=== PATIENT | male | born 1990 | race Two or more races ===

== ENCOUNTER 2020-08-19 11:11 | Outpatient (REF) | payer MEDICAID, SELFPAY ==
[2020-08-19 11:30] LABS: COVID-19 Test Negative (Negative)
== END 2020-08-19 11:12 | disposition home or self-care (01) ==
LOC: HO.LAB 11:11
PROVIDERS: Visit Provider Internal Medicine
DX: Z20.822 Contact with and (suspected) exposure to COVID-19 (principal)
CPT/HCPCS: 36415; 87635; C9803

== ENCOUNTER 2020-12-11 09:46 | Outpatient (REF) | payer MEDICAID, SELFPAY | END 2020-12-11 09:47 | disposition home or self-care (01) | LOC: HO.LAB 09:46 | PROVIDERS: Visit Provider Internal Medicine | DX: Z20.822 Contact with and (suspected) exposure to COVID-19 (principal) | CPT/HCPCS: C9803; U0003; U0005 ==

== ENCOUNTER → 2022-09-22 15:06 | Outpatient (BNVA) | payer MEDICAID, SELFPAY | PROVIDERS: PCP Family Medicine; Visit Provider Urology | DX: N47.1 Phimosis (principal); N48.1 Balanitis; E10.9 Type 1 diabetes mellitus without complications; Z83.3 Family history of diabetes mellitus; Z79.4 Long term (current) use of insulin | CPT/HCPCS: 99202 ==

== ENCOUNTER 2022-10-07 15:44 | Outpatient (REF) | payer MEDICAID, SELFPAY | END 2022-10-07 15:45 | disposition home or self-care (01) | LOC: HO.LAB 15:44 | PROVIDERS: PCP Family Medicine; Visit Provider Urology | DX: N48.1 Balanitis (principal); N47.1 Phimosis; E11.9 Type 2 diabetes mellitus without complications | CPT/HCPCS: 36415; 83036 ==

== ENCOUNTER 2022-10-13 22:51 | Emergency (ER) | payer MEDICAID, SELFPAY ==
[2022-10-13 22:56] VITALS: BP 114/71; PULSE 78; RESP 18; TEMP 36.1; O2SAT 100; BMI 30.1
== END 2022-10-14 00:58 | disposition left against medical advice (07) ==
PROVIDERS: Emergency Provider Emergency Medicine
DX: E11.649 Type 2 diabetes mellitus with hypoglycemia without coma (principal)
CPT/HCPCS: 99281

== ENCOUNTER 2022-12-15 13:04 | Outpatient (AMB) | payer MEDICAID, SELFPAY ==
--- NOTE | 2022-12-15 13:04 | A.OFFVIS_ITS ---
Intake Intake Visit Reasons: H&P (circumcision 12/21) Intake Note: Patient presents via telehealth today for a follow-up on H&P Circumcision, surgery on 12/21/2022: Meds- None Allergies to Antibiotic- No Known Allergies Blood Thinner- None District Plant Supervisor Required: No Accompanied by: Self / Same As Patient Allergies No Known Allergies Allergy (Unverified 12/20/19 17:29) [facility] HPI Comments History of Present Illness Details Manan is a 32-year-old male who presents today via Tele-health for a follow-up. 12/15/2022? He is followed today via Tele-health for?H&P circumcision. He was last seen by me on 09/22/2022 for balanitis. Consent for circumcision was obtained, and Circumcision was discussed to be scheduled during that time. He has a history of diabetes. He has been taking Insulin. Patient states that he had repeat HbA1c yesterday revealed 7.1. Review of charts: Last visit: 09/22/2022-- The patient is taking insulin for type-1 diabetes. Family history of type-2 diabetes in grandmother.? States? he is unable to retract the foreskin. States having discharge previously as well as occasional itching.? Denies blood in the urine, denies problems with urination. On exam- Phimosis - unable to retract the foreskin. No discharge currently.? 12/15/2022?Plan: HbA1c improved. Circumcision scheduled next week. [facility] Medical History Phimosis Type 2 diabetes mellitus Social History Are you a primary career representative to a significant other at home: No Do you presently have visiting nurse or other home services: No Patient Tobacco Use Status: Never used Tobacco Review of Systems Const All systems reviewed & are unremarkable except as noted in HPI and below Reports no additional complaints Eyes Reports no additional complaints ENT Reports no additional complaints Card Denies dyspnea Resp Denies cough and Denies dyspnea GI Reports no additional complaints Musc Reports no additional complaints Skin/Breast Denies rash and Denies unusual bruising Neuro Reports no additional complaints Psych Reports no additional complaints Endo Reports no additional complaints Gee/Lymph Reports no additional complaints Aller/Immun Reports no additional complaints Assessment & Plan Assessment & Plan (1) Phimosis: Code(s): N47.1 - Phimosis (2) Balanitis: Code(s): N48.1 - Balanitis Plan Circumcision was discussed to be scheduled next week. Patient Instructions: The patient had an opportunity to ask questions regarding treatment plan. All questions were answered. Imaging, Laboratory studies and physical exam results were discussed and reviewed in detail. No major barriers to understanding were identified. The patient expressed understanding and agreement with the above treatment plan.? ? ? The patient is aware they should contact our office by phone for worsening of their current condition or the appearance of new symptoms. Compliance is encouraged with any medications and followup testing that is ordered.? ? ? It is a privilege to be allowed the opportunity to participate in the urologic care of your patient. If you have any questions or concerns regarding treatment for the above conditions please do not hesitate to contact me. The office telephone contact is [phone].? ? ? This note is constructed in part using voice recognition software. While every effort has been made to ensure accuracy inside b2b sales errors may have been included.? ? ? Yours sincerely,? ? ? Ebenezer Alexandre MD? Telehealth Telehealth Location of provider rendering services: practice address Location of patient: address on file Patient Identification confirmed using: Name, : Yes Telehealth method: voice only Patient verbally consented to treatment: Yes Patient verbally consented to billing insurance company: Yes Patient informed of any privacy concerns related to visit: Yes Minutes spent on Phone/Video with Pt.: 15 Coding Level of Care Code Tele New Pt Level 3 (97237) Diagnoses Phimosis N47.1 Balanitis N48.1
== END 2022-12-15 14:20 | disposition home or self-care (01) ==
PROVIDERS: Visit Provider Urology
DX: N47.1 Phimosis (principal); N48.1 Balanitis
CPT/HCPCS: 99213

== ENCOUNTER → 2022-12-15 13:04 | Outpatient (BNVA) | payer MEDICAID, SELFPAY | PROVIDERS: Visit Provider Urology ==

== ENCOUNTER 2022-12-21 05:51 | Day surgery (SDC) | payer MEDICAID, SELFPAY ==
[2022-10-08 09:34] VITALS: BMI 27.5
--- NOTE | 2022-12-20 09:18 | HO.ANESPROP2 ---
HPI - Anesthesia Eval Consult details Narrative: 32yo M for Circumcision PMFSH Active Problems Active Problems: All Active Problems (Updated 09/23/22 @ 11:39 by Bere Redmond RN) Type 2 diabetes mellitus (Acute) Balanitis (Acute) Phimosis (Acute) Past Medical History Medical History Phimosis Type 2 diabetes mellitus Social History Social History Are you a primary nurse healthcare manager to a significant other at home: No Do you presently have visiting nurse or other home services: No Patient Tobacco Use Status: Never used Tobacco Meds Allergies Allergy/AdvReac Type Severity Reaction Status Date / Time No Known Allergies Allergy Unverified 12/20/19 17:29 Home Medications Medication Instructions Recorded Confirmed Last Taken Type insulin glargine 100 unit/mL (3 34 unit subcut DAILY 06/28/22 10/08/22 Unknown History mL) subcutaneous pen (Lantus Solostar U-100 Insulin) pen needle, diabetic 31 gauge x #1,200 ea 06/28/22 Unknown History 5/16 (BD Ultra-Fine Short Pen Needle) glucagon 3 mg/actuation nasal 3 mg intranasal PRN Hypoglycemia 10/08/22 Unknown History spray (Baqsimi) insulin lispro 100 unit/mL subcut 10/08/22 Unknown History subcutaneous pen Exam Exam Date and Time: December 20, 2022 0918 Height,Weight and Vital Signs: Height 6 ft 3 in Weight 99.79 kg Assessment and Plan Assessment Anesthesia Assessment: Chart Reviewed
[2022-12-21] VITALS (7 sets, daily range): BP systolic 116–134; BP diastolic 71–87; PULSE 77–88; RESP 16–20; TEMP 36.2–36.8; O2SAT 95–99
[2022-12-21] MEDS: Lactated Ringers 1,000 ML 100 ML IVCONT (06:56)
--- NOTE | 2022-12-21 07:41 | MHC.SHP ---
Pre-Procedural Eval Section A Date of Service: 12/21/22 The patient is an INPATIENT: No The History & Physical has been completed within 30 days and I have reviewed it.: Yes Section B Chief Complaint: Balanitis Allergies: Allergies Allergy/AdvReac Type Severity Reaction Status Date / Time No Known Allergies Allergy Unverified 12/20/19 17:29 Plan Diagnosis/Plan: Unchanged I have reviewed the history and physical and performed a pertinent physical examination on my patient. No changes have occurred unless specified. Circumcision Time Spent With Patient Time: Total time managing care of this patient today ____ minutes.
--- NOTE | 2022-12-21 07:55 | HO.ANESPROP2 ---
[facility] Active Problems Active Problems: All Active Problems (Updated 09/23/22 @ 11:39 by Bere Redmond RN) Type 2 diabetes mellitus (Acute) Balanitis (Acute) Phimosis (Acute) Past Medical History Medical History Phimosis Type 2 diabetes mellitus Family History Family history of problems with anesthesia: No Surgical History History of Problems with Anesthesia: No Social History Social History Are you a primary home care physical therapist to a significant other at home: No Do you presently have visiting nurse or other home services: No Patient Tobacco Use Status: Never used Tobacco Use of substances other than those prescribed or required for medical reasons: No Have you been hit, kicked, punched, or otherwise hurt by someone within the past year? If so, by whom?: No Advance Directives: No Advance Directives Information Provided: Yes Advance Directives on File: No Recently lost weight without trying: No Eating poorly because of decreased appetite: No Nutrition Risks: No Nutritional Risk Poor oral hygiene: Yes (two crowns in the front) Meds Allergies Allergy/AdvReac Type Severity Reaction Status Date / Time No Known Allergies Allergy Unverified 12/20/19 17:29 Active Medications: Current Medications Lactated Ringer's (Lr) 1,000 mls @ 100 mls/hr IVCONT .Q10H SHARMILA Last Admin: 12/21/22 06:56 Dose: 100 mls/hr Home Medications Medication Instructions Recorded Confirmed Last Taken Type insulin glargine 100 unit/mL (3 34 unit subcut DAILY 06/28/22 10/08/22 Unknown History mL) subcutaneous pen (Lantus Solostar U-100 Insulin) pen needle, diabetic 31 gauge x #1,200 ea 06/28/22 Unknown History 5/16 (BD Ultra-Fine Short Pen Needle) glucagon 3 mg/actuation nasal 3 mg intranasal PRN Hypoglycemia 10/08/22 Unknown History spray (Baqsimi) insulin lispro 100 unit/mL subcut 10/08/22 Unknown History subcutaneous pen Exam Exam Date and Time: December 21, 2022 0755 Height,Weight and Vital Signs: Height 6 ft 3 in Weight 99.79 kg Last Vital Signs Temp 98.3 F 12/21/22 06:48 Pulse 84 12/21/22 06:48 Resp 16 12/21/22 06:48 BP 134/87 12/21/22 06:48 Pulse Ox 98 12/21/22 06:48 O2 Del Method Room Air 12/21/22 06:48 Airway Mallampati Class: II TM Dist: >3cm Neck ROM: Full Heart: RRR Lungs: CTA Assessment and Plan Assessment Anesthesia Assessment: Anesthesia Plan Discussed Final Anesthetic Review Family History of Problems with Anesthesia: No History of Problems with Anesthesia: No ASA Class: II Final Preanesthetic Review: Meds/Allgs Chart Reviewed, Consent Obtained/Reviewed and Anes Risks/Benef Reviewed Patient Risk: Low Procedure Risk: Low Anesthetic Plan Anesthetic Plan: GA Disposition: Standard PACU
--- NOTE | 2022-12-21 08:40 | W.PM.OPN ---
Operative Note Operative Note Date of Service: 12/21/22 Narrative: PreOperative Diagnosis:? ? Balanitis, phimosis Post Operative Diagnosis:?Balanitis, phimosis, blistering of the glans Procedure:?Dorsal slit Surgeon:?Dr Ebenezer Alexandre Anesthesia:? General Procedure: After informed consent was verified the patient was brought to the operating room and placed in a supine position.? Anesthesia was performed per protocol. The patient was prepped and draped in the usual sterile fashion. Safety pause time-out was performed. Antibiotics confirmed. Penile block was performed. The fore skin was not able to be retracted, there was white milky secretions below the foreskin. Using a straight clamp followed by incising the skin with cautery, a dorsal slit was done and once the fore skin was retracted the glans and guzmán was covered with papulle like blister appearing lesions with oozing to the touch. The tissue needs to heal prior to further manipulation. The edges of the dorsal slit was closed with 4-0 chromic. Bacitracin ointment was applied to the glans. The patient tolerated the procedure well and was transferred to the recovery area upon completion. Complications: None
--- NOTE | 2022-12-21 10:09 | PC.NURSE ---
PT STATES HIS LEFT CALF CRAMP IS BETTER AT THIS TIME AND THAT HE IS READY FOR DISCHARGE. PATIENT TO NOTIFY HIS MD OR GO TO THE ED WITH ANY ISSUES.
--- NOTE | 2022-12-21 14:07 | HO.POSTANES ---
Post Anesthesia Evaluation Post Anesthesia Evaluation Date of Service: 12/21/22 Vital Signs: Vital Signs Temp Pulse Resp BP Pulse Ox O2 Del Method O2 Flow Rate 12/21/22 09:23 97.1 F 78 20 133/86 97 Room Air 12/21/22 09:08 77 20 133/83 97 Room Air 12/21/22 08:53 88 20 116/71 96 Room Air 12/21/22 08:48 87 20 124/74 96 Room Air 12/21/22 08:43 85 20 119/76 95 Room Air 12/21/22 08:38 97.7 F 77 20 117/75 99 Simple Mask 4 12/21/22 06:48 98.3 F 84 16 134/87 98 Room Air Anesthesia: General LMA and General Mental Status: Awake Pain Control: Satisfactory Nausea/Vomiting: None Hydration: Adequate Anesthesia-Related Issues: No Anes. Related Issues
== END 2022-12-21 10:11 | disposition home or self-care (01) ==
PROVIDERS: PCP Family Medicine; Visit Provider Urology
PROC: (CPT 54001; principal; 2022-12-21 08:30)
DX: N48.1 Balanitis (principal); N47.1 Phimosis; N48.89 Other specified disorders of penis; E11.9 Type 2 diabetes mellitus without complications; Z79.4 Long term (current) use of insulin
CPT/HCPCS: 54001; J0690; J1885; J2250; J2405; J2795; J3010

== ENCOUNTER → 2022-12-21 05:51 | Outpatient (BNV) | payer MEDICAID, SELFPAY | PROVIDERS: PCP Family Medicine; Visit Provider Urology | DX: N48.1 Balanitis (principal) | CPT/HCPCS: 54001 ==

== ENCOUNTER 2022-12-30 10:21 | Outpatient (AMB) | payer MEDICAID, SELFPAY ==
--- NOTE | 2022-12-30 10:21 | A.OFFVIS_ITS ---
Intake Intake Visit Reasons: per Dr. Alexandre Intake Note: Patient presents today for a follow-up on Post Opt. Balanitis: Meds- Augmentin Allergies to Antibiotic- No Known Allergies Blood Thinner- None Repairer Cylinder Heads Required: No Accompanied by: Self / Same As Patient Allergies No Known Allergies Allergy (Verified 12/30/22 10:37) HPI HPI Comments History of Present Illness Details Manan is a 32-year-old male who presents today to the office for a follow-up. 12/29/2022? He is followed today for post op balanitis. He was last seen by me on 12/21/2022 for balanitis.? He does indicate the blisters have improved with the cream. Examination: dorsal slit has closed and I am not able to visualize the entire glands. Plan: Consent form was obtained for circumcision procedure. Circumcision was discussed to be scheduled. [facility] Medical History Phimosis Type 2 diabetes mellitus Social History Are you a primary career placement specialist to a significant other at home: No Do you presently have visiting nurse or other home services: No Patient Tobacco Use Status: Never used Tobacco Review of Systems Const All systems reviewed & are unremarkable except as noted in HPI and below Reports no additional complaints Eyes Reports no additional complaints ENT Reports no additional complaints Card Denies dyspnea Resp Denies cough and Denies dyspnea GI Reports no additional complaints Musc Reports no additional complaints Skin/Breast Denies rash and Denies unusual bruising Neuro Reports no additional complaints Psych Reports no additional complaints Endo Reports no additional complaints Gee/Lymph Reports no additional complaints Aller/Immun Reports no additional complaints Physical Exam Const General: healthy appearing, no acute distress and well developed Orientation/consciousness: patient oriented x3 HEENT Head: Yes normocephalic and Yes atraumatic Eyes Conjunctivae: conjunctivae normal Neck Neck: Yes normal visual inspection Chest Chest palpation & inspection: normal inspection of the chest Resp Effort & Inspection: normal respiratory effort Cardio Rate: regular rate GI Inspection: Yes normal to inspection Palpation (GI): Soft to palpation Penis: uncircumcised and other (unable to retract foreskin) Scrotum: scrotum normal Skin General skin exam: no rashes or lesions noted Neuro General: patient oriented x3 Extrem General: No pedal edema Psych Appearance: grossly normal Affect: normal affect Assessment & Plan Assessment & Plan (1) Phimosis: Code(s): N47.1 - Phimosis (2) Balanitis: Code(s): N48.1 - Balanitis Plan Consent form was obtained for circumcision procedure. Circumcision was discussed to be scheduled.? Patient Instructions: The patient had an opportunity to ask questions regarding treatment plan. All questions were answered. Imaging, Laboratory studies and physical exam results were discussed and reviewed in detail. No major barriers to understanding were identified. The patient expressed understanding and agreement with the above treatment plan.? ? ? The patient is aware they should contact our office by phone for worsening of their current condition or the appearance of new symptoms. Compliance is encouraged with any medications and followup testing that is ordered.? ? ? It is a privilege to be allowed the opportunity to participate in the urologic care of your patient. If you have any questions or concerns regarding treatment for the above conditions please do not hesitate to contact me. The office telephone contact is [phone].? ? ? This note is constructed in part using voice recognition software. While every effort has been made to ensure accuracy phlebotomy tech errors may have been included.? ? ? Yours sincerely,? ? ? Ebenezer Alexandre MD? Coding Level of Care Code Est Pt Level 3 (91796) Diagnoses Phimosis N47.1 Balanitis N48.1
== END 2022-12-30 11:30 | disposition home or self-care (01) ==
PROVIDERS: PCP Registered Nurse; Visit Provider Urology
DX: N47.1 Phimosis (principal); N48.1 Balanitis
CPT/HCPCS: 99024

== ENCOUNTER → 2022-12-30 10:21 | Outpatient (BNVA) | payer MEDICAID, SELFPAY | PROVIDERS: PCP Registered Nurse; Visit Provider Urology | DX: N47.1 Phimosis (principal); N48.1 Balanitis | CPT/HCPCS: 99212 ==

== ENCOUNTER 2023-01-25 06:05 | Day surgery (SDC) | payer MEDICAID, SELFPAY ==
--- NOTE | 2023-01-24 10:15 | P.CONAN_ITS ---
HPI - Anesthesia Eval Consult details Narrative: 32yo M for Circumcision PMFSH Active Problems Active Problems: All Active Problems (Updated 09/23/22 @ 11:39 by Bere Redmond RN) Type 2 diabetes mellitus (Acute) Balanitis (Acute) Phimosis (Acute) Past Medical History Medical History History of phimosis of penis Phimosis Type 2 diabetes mellitus Family History Family history of problems with anesthesia: No Surgical History History of Problems with Anesthesia: No Social History Social History Are you a primary menagerie caretaker to a significant other at home: No Do you presently have visiting nurse or other home services: No Patient Tobacco Use Status: Never used Tobacco Smoked in Last 30 Days: No Use of substances other than those prescribed or required for medical reasons: No Advance Directives: No Advance Directives Information Provided: No Meds Allergies Allergy/AdvReac Type Severity Reaction Status Date / Time No Known Allergies Allergy Verified 01/25/23 06:33 Home Medications Medication Instructions Recorded Confirmed Last Taken Type insulin glargine 100 unit/mL (3 34 unit subcut DAILY 06/28/22 01/25/23 Unknown History mL) subcutaneous pen (Lantus Solostar U-100 Insulin) pen needle, diabetic 31 gauge x #1,200 ea 06/28/22 Unknown History 5/16 (BD Ultra-Fine Short Pen Needle) glucagon 3 mg/actuation nasal 3 mg intranasal PRN Hypoglycemia 10/08/22 Unknown History spray (Baqsimi) insulin lispro 100 unit/mL subcut 10/08/22 Unknown History subcutaneous pen Exam Exam Date and Time: January 24, 2023 1015 Assessment and Plan Assessment Anesthesia Assessment: Chart Reviewed Final Anesthetic Review Family History of Problems with Anesthesia: No History of Problems with Anesthesia: No
[2023-01-25] VITALS (8 sets, daily range): BP systolic 118–133; BP diastolic 74–83; PULSE 70–80; RESP 16–18; TEMP 36.1–36.7; O2SAT 98–100; BMI 24.9
[2023-01-25] MEDS: Lactated Ringers 1,000 ML 100 ML IVCONT (06:25)
[2023-01-25 06:32] LABS: Glucose, Whole Blood 141 mg/dL (60-115)
--- NOTE | 2023-01-25 07:23 | P.CONAN_ITS ---
[facility] Active Problems Active Problems: All Active Problems (Updated 01/25/23 @ 06:36 by Coral Riley RN) Balanitis (Acute) Type 2 diabetes mellitus (Acute) Phimosis (Acute) Past Medical History Medical History (Updated 01/25/23 @ 06:36 by Coral Riley RN) History of phimosis of penis Phimosis Type 2 diabetes mellitus Family History Family history of problems with anesthesia: No Surgical History History of Problems with Anesthesia: No Social History Social History Are you a primary cardiac care nurse to a significant other at home: No Do you presently have visiting nurse or other home services: No Patient Tobacco Use Status: Never used Tobacco Are you DNR?: No Advance Directives: No Advance Directives Information Provided: Yes Nutrition Risks: No Nutritional Risk Meds Allergies Allergy/AdvReac Type Severity Reaction Status Date / Time No Known Allergies Allergy Verified 01/25/23 06:33 Active Medications: Current Medications Lactated Ringer's (Lr) 1,000 mls @ 100 mls/hr IVCONT .Q10H SHARMILA Last Admin: 01/25/23 06:25 Dose: 100 mls/hr Home Medications Medication Instructions Recorded Confirmed Last Taken Type insulin glargine 100 unit/mL (3 34 unit subcut DAILY 06/28/22 01/25/23 Unknown History mL) subcutaneous pen (Lantus Solostar U-100 Insulin) pen needle, diabetic 31 gauge x #1,200 ea 06/28/22 Unknown History 5/16 (BD Ultra-Fine Short Pen Needle) glucagon 3 mg/actuation nasal 3 mg intranasal PRN Hypoglycemia 10/08/22 Unknown History spray (Baqsimi) insulin lispro 100 unit/mL subcut 10/08/22 Unknown History subcutaneous pen Exam Exam Date and Time: January 25, 2023722 Height,Weight and Vital Signs: Height 6 ft 3 in Weight 90.265 kg Last Vital Signs Temp 98.1 F 01/25/23 06:32 Pulse 80 01/25/23 06:32 Resp 18 01/25/23 06:32 BP 124/78 01/25/23 06:32 Pulse Ox 100 01/25/23 06:32 O2 Del Method Room Air 01/25/23 06:32 Pertinent Lab Results Pertinent Lab Results: Laboratory Tests 01/25/23 06:24 POC Glucose 141 H Airway Mallampati Class: II TM Dist: >3cm Neck ROM: Full Loose/Missing/Broken Teeth: No Heart: rrr Lungs: clear Assessment and Plan Final Anesthetic Review Family History of Problems with Anesthesia: No History of Problems with Anesthesia: No NPO: Yes ASA Class: II Final Preanesthetic Review: No Changes in Pt Med Stat, Meds/Allgs Chart Reviewed and Anes Risks/Benef Reviewed Patient Risk: Intermediate Procedure Risk: Low Anesthetic Plan Anesthetic Plan: GA Disposition: Standard PACU, Extended PACU, Inp. Admit - IMC and Inp. Admit - ICU
--- NOTE | 2023-01-25 07:32 | MHC.SHP ---
Pre-Procedural Eval Section A Date of Service: 01/25/23 The patient is an INPATIENT: No The History & Physical has been completed within 30 days and I have reviewed it.: Yes Section B Chief Complaint: Phimosis Allergies: Allergies Allergy/AdvReac Type Severity Reaction Status Date / Time No Known Allergies Allergy Verified 01/25/23 06:33 Plan Diagnosis/Plan: Unchanged I have reviewed the history and physical and performed a pertinent physical examination on my patient. No changes have occurred unless specified. Circumcision. Time Spent With Patient Time: Total time managing care of this patient today ____ minutes.
--- NOTE | 2023-01-25 09:45 | W.PM.OPN ---
Operative Note Operative Note Date of Service: 01/25/23 Narrative: PreOperative Diagnosis:? ? Balanitis, phimosis Post Operative Diagnosis:?Balanitis, phimosis Procedure:?Circumcision Surgeon:?Dr Ebeneezr Alexandre Anesthesia:? General Procedure: After informed consent was verified the patient was brought to the operating room and placed in a supine position.? Anesthesia was performed per protocol. The patient was prepped and draped in the usual sterile fashion. Safety pause time-out was performed. Antibiotics confirmed. Penile block was performed. With the foreskin over the glans a circumferential incision is made at the level of the guzmán. The foreskin was then retracted and a circumferential incision was made 0.5 cm below the guzmán. The foreskin is removed with cautery. The skin is closed in 4 quadrants with 4-0 chromic, each quadrant closed with interrupted 4-0 chromic, bacitracin ointment was used over the incision and incision covered with cling. The patient tolerated the procedure well and was transferred to the recovery area upon completion. Complications: None
== END 2023-01-25 11:07 | disposition home or self-care (01) ==
PROVIDERS: PCP Family Medicine; Visit Provider Urology
PROC: (CPT 54161; principal; 2023-01-25 07:30)
DX: N47.1 Phimosis (principal); N48.1 Balanitis; E11.9 Type 2 diabetes mellitus without complications; Z79.4 Long term (current) use of insulin
CPT/HCPCS: 54161; 82947; 88304; 88313; J0690; J1100; J1885; J2250; J2405; J2795; J3010

== ENCOUNTER → 2023-01-25 06:05 | Outpatient (BNV) | payer MEDICAID, SELFPAY | PROVIDERS: PCP Family Medicine; Visit Provider Urology | DX: N47.1 Phimosis (principal) | CPT/HCPCS: 54161 ==

== ENCOUNTER 2023-01-30 01:34 | Emergency (ER) | payer MEDICAID, SELFPAY ==
[2023-01-30 01:36] VITALS: BP 131/95; PULSE 80; RESP 16; TEMP 36.5; O2SAT 96; BMI 29.4
--- NOTE | 2023-01-30 01:59 | ED_ITS ---
HPI - Headache General Chief Complaint: Headache Stated Complaint: n/v, stomach pain Time Seen by Provider: 01/30/23 01:51 Source: patient Mode of arrival: ambulatory Limitations: no limitations History of Present Illness HPI Narrative: patient with a history of migraine, presents with IBRAHIM, and continual vomiting that started hours ago. MD elicited complaint: headache and migraine Onset (ago): hour(s) Onset description: gradually Location: frontal and temporal Severity: moderate Related Data Home Medications Medication Instructions Recorded Confirmed insulin glargine 100 unit/mL (3 34 unit subcut DAILY 06/28/22 01/25/23 mL) subcutaneous pen (Lantus Solostar U-100 Insulin) pen needle, diabetic 31 gauge x #1,200 ea 06/28/22/16 (BD Ultra-Fine Short Pen Needle) glucagon 3 mg/actuation nasal 3 mg intranasal PRN Hypoglycemia 10/08/22 spray (Baqsimi) insulin lispro 100 unit/mL subcut 10/08/22 subcutaneous pen Previous Rx's Medication Instructions Recorded clotrimazole-betamethasone 1 1 appl topical BID #45 grams 12/21/22 %-0.05 % topical cream oxycodone-acetaminophen 5 mg-325 1 tab PO Q6H PRN pain 2 days #8 01/25/23 mg tablet (Percocet) tabs naproxen 500 mg tablet (Naprosyn) 500 mg PO BID #20 tabs 01/30/23 Allergies Allergy/AdvReac Type Severity Reaction Status Date / Time No Known Allergies Allergy Verified 01/25/23 06:33 Review of Systems 2 Review of Systems: Yes all other systems are reviewed and are negative Neurologic: Denies Sensory deficit (Neuro) [facility] Past Medical History Medical History History of phimosis of penis Phimosis Type 2 diabetes mellitus Social History Social History Are you a primary manager medicare marketing to a significant other at home: No Do you presently have visiting nurse or other home services: No Patient Tobacco Use Status: Never used Tobacco Smoked in Last 30 Days: No Use of substances other than those prescribed or required for medical reasons: No Advance Directives: No Advance Directives Information Provided: No Physical Exam 2 Vital Signs: Vital Signs: Last Vital Signs Temp 98.0 F 01/30/23 05:00 Pulse 79 01/30/23 05:00 Resp 18 01/30/23 05:00 BP 154/98 H 01/30/23 05:00 Pulse Ox 99 01/30/23 05:00 O2 Del Method Room Air 01/30/23 05:00 BMI result Body Mass Index 29.4 Const: Other: male looking pale and diaphoretic Nutritional Appearance: average body habitus Orientation/consciousness: oriented to person and patient oriented x3 Limitations: no limitations HEENT: Head: Yes normal to inspection Ears: external ears normal General nose exam: Normal external nose present Mouth: Normal oral and palatal mucosa present and oropharynx normal Throat: Yes posterior oropharynx normal Eyes: General: appearance normal, both eyes and all related structures Neck: Other: supple Neck: Yes normal visual inspection Chest: Chest palpation & inspection: normal inspection of the chest Resp: Auscultation: clear to auscultation bilaterally Cardio: Jugular venous distension: no JVD Rate: regular rate Rhythm: r egular rhythm Heart sounds: S1 normal heart sound present and S2 normal heart sound present GI: Inspection: Yes normal to inspection Palpation (GI): Soft to palpation, nontender and No hepatosplenomegaly present Auscultation: normal bowel sounds : General: Yes no CVA tenderness Back/Spine/Pelvis: Back: no CVA tenderness Skin: General skin exam: no rashes or lesions noted Neuro: General: oriented to person and patient oriented x3 Cranial nerves: Yes CN's II-XII intact bilaterally Motor exam (neuro): 5/5 motor strength present throughout Sensory Exam: No Sensory deficit (Neuro) Extrem: General: Yes normal to inspection Psych: Appearance: grossly normal Course Reevaluation(s) Reevaluation #1: Male has slept intermittently. Resting comfortably will dc home Time: 06:40 Medications Administered Generic Name Dose Route Start Last Admin Trade Name Freq PRN Reason Stop Dose Admin Sodium Chloride 1,000 mls @ 500 mls/hr 01/30/23 05:00 01/30/23 04:59 Ns IVCONT 01/30/23 06:59 500 mls/hr .Q2H SHARMILA Administration Discontinued Medications Generic Name Dose Route Start Last Admin Trade Name Freq PRN Reason Stop Dose Admin Diphenhydramine HCl 25 mg 01/30/23 04:51 01/30/23 04:58 Diphenhydramine Hcl 50 Mg/Ml Vial IVPUSH 01/30/23 04:52 25 mg ONCE ONE Administration Haloperidol Lactate 5 mg 01/30/23 04:51 01/30/23 04:59 Haloperidol Lactate 5 Mg/Ml Vial IVPUSH 01/30/23 04:52 5 mg STAT STA Administration Sodium Chloride 1,000 mls @ 500 mls/hr 01/30/23 02:00 01/30/23 04:34 Ns IVCONT 01/30/23 03:59 Infused .Q2H SHARMILA Infusion Promethazine HCl 25 mg/ Sodium 51 mls @ 204 mls/hr 01/30/23 01:58 01/30/23 02:58 Chloride IV 01/30/23 01:59 Infused ONCE ONE Infusion Ketorolac Tromethamine 30 mg 01/30/23 01:58 01/30/23 02:22 Ketorolac Tromethamine 30 Mg/Ml Vial IVPUSH 01/30/23 01:59 30 mg ONCE ONE Administration Sumatriptan Succinate 6 mg 01/30/23 04:08 01/30/23 04:34 Sumatriptan Succinate 6 Mg/0.5 Ml Vial SUBCUT 01/30/23 04:09 6 mg ONCE ONE Administration Medical Decision Making Differential Diagnosis Differential Diagnoses: The differential diagnosis associated with the presentation includes (migraine, headache, vomiting) Admission/Observation Consideration of admission/observation: Escalation of care including admission/observation considered (upon arrival patient was considered for admission) Lab Data MDM Lab Attestation statement: I reviewed the patient's lab results. (mildly elevated sugar) 01/30/23 01:56 01/30/23 01:56 Labs: Lab Results 01/30/23 01/30/23 Range/Units 01:56 02:10 WBC 8.8 (4.8-10.8) X10*3/uL RBC 5.42 (4.60-5.80) X10*6/uL Hgb 15.6 (14.0-18.0) g/dl Hct 41.8 L (42.0-52.0) % MCV 77.1 L (80.0-98.0) fL MCH 28.8 (27.0-33.0) pg MCHC 37.3 H (31.0-36.0) g/dl RDW 11.5 (11.0-16.0) % Plt Count 216 (160-400) X10*3/uL MPV 9.3 L (9.4-12.4) fL Immature Gran % (Auto) 0.3 (0.0-0.4) % Neut % (Auto) 68.7 (45-73) % Lymph % (Auto) 23.9 (20-40) % Smyth % (Auto) 6.1 (2-11) % Eos % (Auto) 0.8 (0-4) % Baso % (Auto) 0.2 (0-2) % Lymph # (Auto) 2.1 (1.2-4.9) X10*3/uL Smyth # (Auto) 0.5 (0.1-1.2) X10*3/uL Eos # (Auto) 0.1 (0.0-0.4) X10*3/uL Baso # (Auto) 0.0 (0.0-0.2) X10*3/uL Abs Immat Gran (auto) 0.03 (0.00-0.03) X10*3/uL Absolute Neuts (auto) 6.1 (2.0-8.3) x10*3/uL Absolute Nucleated RBC 0.000 (0.0-0.012) X10*3/uL Nucleated RBC % (auto) 0.0 (0.0-0.2) /100WBC Sodium 136 (135-145) mmol/L Potassium 4.0 (3.3-5.1) mmol/L Chloride 100 (96-108) mmol/L Carbon Dioxide 24 (22-29) mmol/L Anion Gap 16 (12-20) BUN 11 (9-16) mg/dL Creatinine 0.80 (0.5-1.4) mg/dL Estim Creat Clear Calc 176.7 Estimated GFR > 60 Random Glucose 233 H (60-115) mg/dL Calcium 10.0 (8.4-10.2) mg/dL Total Bilirubin 0.7 (0.0-1.0) mg/dL AST 19 (5-37) U/L ALT 35 (0-40) U/L Alkaline Phosphatase 59 (39-117) U/L Total Protein 7.9 (6.5-8.0) g/dL Albumin 4.1 (3.5-5.0) g/dL Urine Color Yellow Urine Appearance Clear Urine pH 7.0 (5.0-9.0) Ur Specific [place] 1.015 (1.005-1.025) Urine Protein Negative (Neg-Trace) mg/dL Urine Glucose (UA) Negative (Negative) mg/dL Urine Ketones Negative (Negative) mg/dL Urine Blood Negative (Negative) Urine Nitrite Negative (Negative) Ur Leukocyte Esterase Negative (Negative) Independent Historian Clinical information obtained from an independent historian. History obtained from or confirmed by: Friend Tests considered The following testing was considered but not selected: head CT considered but patient with a headache history and is non focal Prescription Management I considered prescription management with: Pain Medication (narcotics considered but NSAIDs is a better choice) Chronic Conditions Patient?s care impacted by: Diabetes Discharge Plan Discharge Clinical Impression: Migraine, Headache Patient Disposition: Home, Self-Care Instructions: Migraine Headache (ED) Prescriptions: New naproxen [Naprosyn] 500 mg tablet 500 mg PO BID Qty: 20 0RF No Action oxycodone-acetaminophen [Percocet] 5-325 mg tablet 1 tab PO Q6H PRN (Reason: pain) 2 Days Qty: 8 0RF Rx Instructions: Partial Fill upon patient request. Baqsimi 3 mg/actuation spray,non-aerosol 3 mg INTRANASAL PRN (Reason: Hypoglycemia) insulin lispro 100 unit/mL insulin pen subcut clotrimazole-betamethasone 1-0.05 % cream 1 appl topical BID Qty: 45 0RF Rx Instructions: apply to glans bid for 7 days then prn insulin glargine [Lantus Solostar U-100 Insulin] 100 unit/mL (3 mL) insulin pen 34 unit subcut DAILY (DME) pen needle, diabetic [BD Ultra-Fine Short Pen Needle] 31 gauge x 5/16 needle See Rx Instructions .ROUTE DAILY Qty: 1200 Rx Instructions: As directed Referrals: Asha Monroe MD [Primary Care Provider] - 3 days
--- NOTE | 2023-01-30 01:59 | ECG_ITS ---
Test Reason : PALPITATIONS Blood Pressure : / mmHG Vent. Rate : 083 BPM Atrial Rate : 083 BPM P-R Int : 130 ms QRS Dur : 100 ms QT Int : 376 ms P-R-T Axes : 033 056 070 degrees QTc Int : 441 ms Normal sinus rhythm Nonspecific ST abnormality Abnormal ECG No significant changes seen Referred By: Thomas Jason Electronically Signed By:LIBORIO KEYES MD
[2023-01-30 02:00] LABS: MANUAL DIFF FLAG NO
[2023-01-30 02:01] LABS: Basophils Percent Auto 0.2 % (0-2); Eosinophils Absolute Auto 0.1 X10*3/uL (0.0-0.4); Eosinophils Percent Auto 0.8 % (0-4); Hematocrit 41.8 % (42.0-52.0); Hemoglobin 15.6 g/dl (14.0-18.0); Imm Gran Abs Auto 0.03 X10*3/uL (0.00-0.03); Imm Gran Pct Auto 0.3 % (0.0-0.4); Lymphocytes Absolute Auto 2.1 X10*3/uL (1.2-4.9); Lymphocytes Percent Auto 23.9 % (20-40); Mean Corpuscular HGB Conc 37.3 g/dl (31.0-36.0); Mean Corpuscular Hemoglobin 28.8 pg (27.0-33.0); Mean Corpuscular Volume 77.1 fL (80.0-98.0); Mean Platelet Volume 9.3 fL (9.4-12.4); Monocytes Absolute Auto 0.5 X10*3/uL (0.1-1.2); Monocytes Percent Auto 6.1 % (2-11); Neutrophils Absolute Auto 6.1 x10*3/uL (2.0-8.3); Neutrophils Percent Auto 68.7 % (45-73); Platelet Count 216 X10*3/uL (160-400); Red Blood Count 5.42 X10*6/uL (4.60-5.80); Red Cell Distribution Width 11.5 % (11.0-16.0); White Blood Count 8.8 X10*3/uL (4.8-10.8)
[2023-01-30 02:17] LABS: Appearance Urine Clear; Color Urine Yellow; Glucose Urine UA Negative (Negative); Leukocyte Esterase Urine Negative (Negative); Nitrite Urine Negative (Negative); Specific Gravity - Urine 1.015 (1.005-1.025); Urine Blood Negative (Negative); Urine Ketones Negative (Negative); Urine Protein Negative (Neg-Trace)
[2023-01-30 02:17] LABS: Alanine Aminotransferase 35 U/L (0-40); Albumin Level 4.1 g/dL (3.5-5.0); Alkaline Phosphatase 59 U/L (39-117); Anion Gap 16 (12-20); Aspartate Amino Transferase 19 U/L (5-37); Bilirubin Total 0.7 mg/dL (0.0-1.0); Blood Urea Nitrogen 11 mg/dL (9-16); Carbon Dioxide 24 mmol/L (22-29); Chloride 100 mmol/L (96-108); Creatinine Clr Calc Pharmacy 176.7; Estimated Glomerular Filt Rate > 60; Glucose Random 233 mg/dL (60-115); Sodium 136 mmol/L (135-145); Total Protein 7.9 g/dL (6.5-8.0)
[2023-01-30] MEDS: Ketorolac Tromethamine 30 MG/ML VIAL IVPUSH (02:22)
[2023-01-30] MEDS: 0.9 % Sodium Chloride 1,000 ML 500 ML IVCONT ×2 (02:22→04:59)
[2023-01-30] MEDS: SUMAtriptan succinate 6 MG/0.5 ML VIAL SUBCUT (04:34)
--- NOTE | 2023-01-30 04:53 | PC.NURSE ---
Pt sitting up in bed at this time, complaining of 7/10 pain in his head. Pt was medicated with imitrex then reported increased headache. Dr Jason aware, new orders given.
[2023-01-30] MEDS: diphenhydrAMINE HCL 50 MG/ML VIAL 25 MG IVPUSH (04:58)
[2023-01-30] MEDS: Haloperidol Lactate 5 MG/ML VIAL IVPUSH (04:59)
[2023-01-30 05:00] VITALS: BP 154/98; PULSE 79; RESP 18; TEMP 36.7; O2SAT 99
== END 2023-01-30 07:05 | disposition home or self-care (01) ==
PROVIDERS: Emergency Provider Emergency Medicine; PCP Family Medicine
DX: G43.909 Migraine, unspecified, not intractable, without status migrainosus (principal); R11.2 Nausea with vomiting, unspecified; R00.2 Palpitations; Z79.899 Other long term (current) drug therapy
CPT/HCPCS: 36415; 80053; 81003; 85025; 93005; 96361; 96374; 96375; 99284; 99285; J1200; J1885; J2550; J3030

== ENCOUNTER 2023-02-23 13:02 | Outpatient (AMB) | payer MEDICAID, SELFPAY ==
--- NOTE | 2023-02-23 13:09 | MHC.OFFVIS ---
Intake Intake Visit Reasons: one month (circ.) Intake Note: Patient is present for Circumcision follow up Allergies No Known Allergies Allergy (Verified 01/25/23 06:33) HPI HPI Comments History of Present Illness Details Manan is a 32-year-old male who presents today to the office for a follow-up. 02/23/2023-- He is followed today for post op circumcision. He is a status post circumcision done on 01/25/2023. I have reviewed and discussed the pathology report from 01/25/2023 revealed that the foreksin with ulcerated skin with abscess formation and hyperplasia. Negative for malignancy. Examination: Circumcision incision is healing well and no signs of infection. 02/23/2023: Plan: Follow-up prn. [facility] Medical History History of phimosis of penis Phimosis Type 2 diabetes mellitus Surgical History Hx of circumcision Family History Father No problems noted. Mother No problems noted. Social History Are you a primary coronary care unit nurse to a significant other at home: No Do you presently have visiting nurse or other home services: No Patient Tobacco Use Status: Never used Tobacco Review of Systems Const All systems reviewed & are unremarkable except as noted in HPI and below Reports no additional complaints Eyes Reports no additional complaints ENT Reports no additional complaints Card Denies dyspnea Resp Denies cough and Denies dyspnea GI Reports no additional complaints Musc Reports no additional complaints Skin/Breast Denies rash and Denies unusual bruising Neuro Reports no additional complaints Psych Reports no additional complaints Endo Reports no additional complaints Gee/Lymph Reports no additional complaints Aller/Immun Reports no additional complaints Results Reviewed Results Reviewed: Diagnosis Foreskin, excision: - Ulcerated skin with abscess formation and pseudoepitheliomatous hyperplasia. - Patchy acellular congophilic material. - Negative for malignancy. COMMENT: The congophilic material does not appear to be in the fink of vessels but has variable green birefringence under polarization, which raises the differential of amyloid. However, the intensity of the polarization is somewhat subdued and could be artifactual. Correlation with the patient's clinical presentation and history is recommended. Clinical History Phimosis Microscopic Description Microscopic sections reviewed. The acellular material is congophilic with Congo red stain and has a degree of green birefringence under polarization. Material Received Foreskin Gross Description Received in formalin labeled ?foreskin? is a 7.5 x 2.0 cm elliptical fragment of focally eroded versus ulcerated serna-pink and serna-brown foreskin excised to a maximum depth of 0.45 cm. There are a few eroded versus ulcerated pink-red foci ranging from 0.4-0.6 cm in greatest dimension which are located 0.45 cm from the nearest inked margin of resection. The margins are inked and the specimen is serially sectioned to reveal edematous, congested and hemorrhagic serna-pink and red-maroon cut surfaces. The eroded versus ulcerated foci are submitted in cassettes A1-A4 perpendicular to the nearest margins of resection. CEDS Assessment & Plan Assessment & Plan (1) Phimosis: Code(s): N47.1 - Phimosis (2) Balanitis: Code(s): N48.1 - Balanitis (3) Follow-up after circumcision: Code(s): Z09 - Encounter for follow-up examination after completed treatment for conditions other than malignant neoplasm Plan Follow-up prn. Patient Instructions: The patient had an opportunity to ask questions regarding treatment plan. All questions were answered. Imaging, Laboratory studies and physical exam results were discussed and reviewed in detail. No major barriers to understanding were identified. The patient expressed understanding and agreement with the above treatment plan. The patient is aware they should contact our office by phone for worsening of their current condition or the appearance of new symptoms. Compliance is encouraged with any medications and followup testing that is ordered. It is a privilege to be allowed the opportunity to participate in the urologic care of your patient. If you have any questions or concerns regarding treatment for the above conditions please do not hesitate to contact me. The office telephone contact is [phone]. This note is constructed in part using voice recognition software. While every effort has been made to ensure accuracy photo printer errors may have been included. Yours sincerely, Ebenezer Alexandre MD Coding Level of Care Code Est Pt Level 3 (50263) Diagnoses Phimosis N47.1 Balanitis N48.1 Follow-up after circumcision Z09
== END 2023-02-23 13:49 | disposition home or self-care (01) ==
PROVIDERS: Visit Provider Urology
DX: N47.1 Phimosis (principal); N48.1 Balanitis; Z09 Encounter for follow-up examination after completed treatment for conditions other than malignant neoplasm
CPT/HCPCS: 99213

== ENCOUNTER → 2023-02-23 13:02 | Outpatient (BNVA) | payer MEDICAID, SELFPAY | PROVIDERS: Visit Provider Urology | DX: N48.1 Balanitis (principal); N47.1 Phimosis | CPT/HCPCS: 99212 ==

== ENCOUNTER 2023-06-28 10:56 | Outpatient (REF) | payer MEDICAID, SELFPAY ==
[2023-06-28 13:46] LABS: Glucose Fasting 330 mg/dL (60-99)
[2023-06-28 14:00] LABS: Alanine Aminotransferase 33 U/L (0-40); Albumin Level 3.9 g/dL (3.5-5.0); Alkaline Phosphatase 82 U/L (39-117); Anion Gap 11 (12-20); Aspartate Amino Transferase 18 U/L (5-37); Bilirubin Direct 0.2 mg/dL (0.0-0.5); Bilirubin Total 0.5 mg/dL (0.0-1.0); Blood Urea Nitrogen 9 mg/dL (9-16); Calcium 9.2 mg/dL (8.4-10.2); Carbon Dioxide 30 mmol/L (22-29); Chloride 101 mmol/L (96-108); Cholesterol 167 mg/dL (<200); Estimated Glomerular Filt Rate > 60; Glucose Random 341 mg/dL (60-115); HDL Cholesterol 43 mg/dL (>40); LDL Cholesterol Calculated 91 mg/dL (<100); Potassium 4.5 mmol/L (3.3-5.1); Sodium 137 mmol/L (135-145); Total Protein 7.5 g/dL (6.5-8.0); Triglycerides 166 mg/dL (<150)
[2023-06-28 14:12] LABS: Microalbum/Creatinine Ratio Ur 5.5 ug/mg cr (<30)
[2023-06-30 05:46] LABS: Rubella IgG Antibody 1.76 Index
[2023-07-08 16:47] LABS: Islet Cell Antibody Screen NEGATIVE (NEGATIVE)
== END 2023-06-28 10:57 | disposition home or self-care (01) ==
LOC: HO.HHCL 10:56
PROVIDERS: Visit Provider Family Medicine
DX: E11.65 Type 2 diabetes mellitus with hyperglycemia (principal); Z78.9 Other specified health status
CPT/HCPCS: 36415; 80048; 80061; 80076; 82043; 82570; 82947; 86341; 86735; 86762; 86765; 86787

== ENCOUNTER 2023-11-25 18:44 | Emergency (ER) | payer OTHER, SELFPAY ==
[2023-11-25 18:54] VITALS: BP 137/83; PULSE 88; RESP 16; TEMP 36.7; O2SAT 98
--- NOTE | 2023-11-25 18:54 | ED_ITS ---
HPI - Skin/Abscess/Foreign Bdy General Chief complaint: Wound/Laceration Stated complaint: work inj - hand lac Time Seen by Provider: 11/25/23 23:22 Source: patient Mode of arrival: ambulatory Limitations: no limitations History of Present Illness HPI narrative: Patient is a 32-year-old male who presents emergency department for evaluation of an accidental laceration to the left calm sustained from a straight edge razor blade while at work today. No active bleeding. No use of anticoagulants. Last tetanus vaccination in January of 2016. Related Data Home Medications ?Medication ?Instructions ?Recorded ?Confirmed insulin glargine 100 unit/mL (3 34 unit subcut DAILY 06/28/22 01/25/23 mL) subcutaneous pen (Lantus Solostar U-100 Insulin) pen needle, diabetic 31 gauge x #1,200 ea 06/28/2208/17 (BD Ultra-Fine Short Pen Needle) glucagon 3 mg/actuation nasal 3 mg intranasal PRN Hypoglycemia 10/08/22 spray (Baqsimi) insulin lispro 100 unit/mL subcut 10/08/22 subcutaneous pen Previous Rx's ?Medication ?Instructions ?Recorded clotrimazole-betamethasone 1 1 appl topical BID #45 grams 12/21/22 %-0.05 % topical cream Allergies Allergy/AdvReac Type Severity Reaction Status Date / Time No Known Allergies Allergy Verified 11/25/23 18:57 Review of Systems Review of Systems: Yes all other systems are reviewed and are negative [facility] Past Medical History Attestation statement: The following information was validated with the patient. Source: old records reviewed Medical History History of phimosis of penis Phimosis Type 2 diabetes mellitus Surgical History Hx of circumcision Family History Family History Father No problems noted. Mother No problems noted. Social History Social History (System 06/17/23 @ 13:57 by Guillermo Hernandez) Are you a primary child day care teacher to a significant other at home: No Do you presently have visiting nurse or other home services: No Patient Tobacco Use Status: Never used Tobacco Advance Directives: No Advance Directives Information Provided: Yes Do you have a plan to hurt others: No Plan Physical Exam Vital Signs: Vital Signs: Last Vital Signs Temp 97.5 F 11/25/23 23:41 Pulse 76 11/25/23 23:41 Resp 16 11/25/23 23:41 BP 134/81 11/25/23 23:41 Pulse Ox 97 11/25/23 23:41 O2 Del Method Room Air 11/25/23 23:41 BMI result Body Mass Index 30.0 Appearance: Alert.?Oriented to person, place and time. No acute distress.?Normal affect. CVS: Heart sounds normal. Normal heart rate and rhythm.? Pulses normal.?? Respiratory: No respiratory distress.? Lung sounds clear to auscultation bilaterally?? Skin: Skin warm and dry.? Normal skin color.? 3 cm linear laceration to the left thenar eminence Extremities: No lower extremity edema.? Low range of motion to digits of left hand and left wrist Neuro: Moves all extremities spontaneously. Sensation intact bilaterally. Course Course Course Narrative: This is a Rapid Medical Examination (RME) performed by Ab Hutton PA-C in triage. Full HPI, ROS, assessment and treatment plan per primary provider in the Main ED. 32 yo male hx T2DM here for eval of lac to left palm sustained while cutting a part with a single edged razor blade at work 30 minutes prior to arrival. states tetanus UTD. PE: 3cm linear laceration noted to left thenar eminence. bleeding controlled in triage. no noted fb. Plan: lac repair Medications Administered Discontinued Medications Generic Name Dose Route Start Last Admin Trade Name Freq PRN Reason Stop Dose Admin Diphtheria/Tetanus/Acell Pertussis 0.5 ml 11/25/23 23:51 11/26/23 00:12 Diphth,Pertus(Acell),Tet Adult 0.5 Ml Syringe IM 11/25/23 23:52 0.5 ml .ONCE ONE Administration Lidocaine HCl 5 ml 11/25/23 23:51 11/26/23 00:13 Lidocaine Hcl 1 % Mpf 5 Ml Vial SUBCUT 11/25/23 23:52 5 ml ONCE ONE Administration Procedures Laceration Laceration 1: Site: hand Side (If applicable): left Size (cm): 3 Description: linear Depth: simple, single layer Local Anesthetic: lidocaine 1% Amount of anesthesia used (mL): 4 Pre-repair: wound explored, irrigated extensively and deep structures intact Skin layer closed with: nylon Size (cm): 5-0 Number of sutures: 5 Technique: simple, interrupted Discharge Plan Discharge Patient Disposition: Home, Self-Care Instructions: Laceration (ED) Additional Instructions: You may clean the area gently slowly with warm water and mild non scented soap over the next 2 days, dry the area afterwards, otherwise should remain dry until removed. Avoid prolonged soaking in water such as swimming, soaking in the bath. Sutures will need to be removed in 10-14 days days, you may return back to emergency department or follow-up with your primary care doctor for removal Tetanus vaccine was updated today Return with any new or worsening symptoms or concerns such as increasing pain, redness, swelling, pus-like discharge, fevers or chills. Prescriptions: No Action Baqsimi 3 mg/actuation spray,non-aerosol 3 mg INTRANASAL PRN (Reason: Hypoglycemia) insulin lispro 100 unit/mL insulin pen subcut clotrimazole-betamethasone 1-0.05 % cream 1 appl topical BID Qty: 45 0RF Rx Instructions: apply to glans bid for 7 days then prn insulin glargine [Lantus Solostar U-100 Insulin] 100 unit/mL (3 mL) insulin pen 34 unit subcut DAILY (DME) pen needle, diabetic [BD Ultra-Fine Short Pen Needle] 31 gauge x 5/16 needle See Rx Instructions .ROUTE DAILY Qty: 1200 Rx Instructions: As directed Referrals: [facility] [Primary Care Provider] - Print Language: Estonian
[2023-11-25 23:41] VITALS: BP 134/81; PULSE 76; RESP 16; TEMP 36.4; O2SAT 97
[2023-11-26] MEDS: Diphth,Pertus(ACell),Tet Adult 0.5 ML SYRINGE IM (00:12)
[2023-11-26] MEDS: Lidocaine HCl 1 % MPF 5 ML VIAL SUBCUT (00:13)
[2023-11-26 01:18] VITALS: BP 134/81; PULSE 76; RESP 16; TEMP 36.4; O2SAT 97
== END 2023-11-26 01:15 | disposition home or self-care (01) ==
PROVIDERS: Emergency Provider Emergency Medicine Emergency Medical Services
DX: S61.412A Laceration without foreign body of left hand, initial encounter (principal); W27.8XXA Contact with other nonpowered hand tool, initial encounter; Y93.89 Activity, other specified; Y92.59 Other trade areas as the place of occurrence of the external cause; Y99.0 Civilian activity done for income or pay; E11.9 Type 2 diabetes mellitus without complications; Z23 Encounter for immunization
CPT/HCPCS: 12002; 90471; 90715; 99283; 99284

== ENCOUNTER 2024-01-31 10:43 | Outpatient (REF) | payer OTHER, SELFPAY ==
--- NOTE | ~2024-01-31 | XR_ITS ---
EXAMINATION: XR FOOT, RIGHT CLINICAL INFORMATION: Diabetic neuropathy, right foot swelling COMPARISON: None available. TECHNIQUE: AP, lateral, and oblique views of the right foot. FINDINGS: There is mild soft tissue swelling. There is development of periarticular debris/bone fragmentation in the mid foot. No fracture. Alignment is anatomic. Joint spaces are maintained. There is calcific tendinopathy. XR/XR foot RT min 3V IMPRESSION: Development of periarticular debris/bone fragmentation in the mid foot. Electronically signed by: Yelitza Barajas MD 01/31/2024 12:13 PM EDT
== END 2024-01-31 10:44 | disposition home or self-care (01) ==
LOC: HO.HHCX 10:43
PROVIDERS: Visit Provider Family Medicine
DX: R22.41 Localized swelling, mass and lump, right lower limb (principal)
CPT/HCPCS: 73630

== ENCOUNTER 2024-03-21 11:47 | Outpatient (REF) | payer OTHER, SELFPAY ==
[2024-03-21 11:55] LABS: MANUAL DIFF FLAG NO
[2024-03-21 12:08] LABS: Basophils Percent Auto 0.3 % (0-2); Eosinophils Absolute Auto 0.1 X10*3/uL (0.0-0.4); Eosinophils Percent Auto 1.4 % (0-4); Hematocrit 41.4 % (42.0-52.0); Hemoglobin 14.2 g/dl (14.0-18.0); Imm Gran Abs Auto 0.01 X10*3/uL (0.00-0.03); Imm Gran Pct Auto 0.2 % (0.0-0.4); Lymphocytes Absolute Auto 2.3 X10*3/uL (1.2-4.9); Lymphocytes Percent Auto 36.5 % (20-40); Mean Corpuscular HGB Conc 34.3 g/dl (31.0-36.0); Mean Corpuscular Hemoglobin 26.9 pg (27.0-33.0); Mean Corpuscular Volume 78.4 fL (80.0-98.0); Mean Platelet Volume 9.2 fL (9.4-12.4); Monocytes Absolute Auto 0.5 X10*3/uL (0.1-1.2); Monocytes Percent Auto 8.7 % (2-11); Neutrophils Absolute Auto 3.3 x10*3/uL (2.0-8.3); Neutrophils Percent Auto 52.9 % (45-73); Platelet Count 248 X10*3/uL (160-400); Red Blood Count 5.28 X10*6/uL (4.60-5.80); Red Cell Distribution Width 12.1 % (11.0-16.0); White Blood Count 6.2 X10*3/uL (4.8-10.8)
[2024-03-21 12:44] LABS: Cholesterol 191 mg/dL (<200); HDL Cholesterol 50 mg/dL (>40); LDL Cholesterol Calculated 115 mg/dL (<100); Triglycerides 132 mg/dL (<150); Uric Acid 6.1 mg/dL (3.4-7.0)
== END 2024-03-21 11:48 | disposition home or self-care (01) ==
LOC: HO.LAB 11:47
PROVIDERS: PCP Family Medicine; Visit Provider Family Medicine
DX: R22.41 Localized swelling, mass and lump, right lower limb (principal); E78.2 Mixed hyperlipidemia
CPT/HCPCS: 36415; 80061; 84550; 85025; 86140

== ENCOUNTER 2024-03-22 09:56 | Outpatient (REF) | payer OTHER, SELFPAY ==
--- NOTE | ~2024-03-22 | XR_ITS ---
EXAMINATION: XR FOOT, RIGHT CLINICAL INFORMATION: continued foot swelling and redness, hx neuropahty, eval osteomyelitis COMPARISON: 01/31/2024 TECHNIQUE: AP, lateral, and oblique views of the right foot. FINDINGS: Progressive osseous fragmentation in the dorsal aspect of the midfoot. There is increased widening of the Lisfranc articulation with increased joint space narrowing at the medial naviculocuneiform joint and the second and third TMT joints. There is increased periosteal bone formation along the second metatarsal. There is a intra-articular fracture of the second toe proximal phalangeal base which is subacute in nature with surrounding periosteal bone formation. Soft tissues are diffusely swollen. There is associated subcutaneous edema. Ossification of the plantar fascia. XR/XR foot RT min 3V IMPRESSION: 1. Progressive osseous fragmentation in the dorsal aspect of the midfoot with increased widening of the Lisfranc articulation and increased joint space narrowing at the medial naviculocuneiform joint and the second and third TMT joints. 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 2. Subacute intra-articular fracture of the second toe proximal phalangeal base. 3. Diffuse soft tissue swelling and subcutaneous edema. Superimposed osteomyelitis is difficult to exclude radiographically, though no focal areas of osteolysis are identified. Consider correlation with MRI of the foot with and without contrast for further assessment Electronically signed by: Mele Hauser MD 03/24/2024 11:21 PM [facility] PEREZ
== END 2024-03-22 09:57 | disposition home or self-care (01) ==
LOC: HO.HHCX 09:56
PROVIDERS: Visit Provider Family Medicine
DX: M79.675 Pain in left toe(s) (principal); M79.674 Pain in right toe(s); E11.610 Type 2 diabetes mellitus with diabetic neuropathic arthropathy; B35.1 Tinea unguium
CPT/HCPCS: 73630

== ENCOUNTER 2024-04-26 10:32 | Outpatient (REF) | payer OTHER, SELFPAY ==
[2024-04-26 11:47] LABS: Estimated Average Glucose 214 mg/dL; Hemoglobin A1C 270.6691 umol/L; Hemoglobin A1c % 9.1 % (<6.0); Total Hemoglobin (HGBA1C) 3589.0973 umol/L
[2024-04-26 12:04] LABS: Alanine Aminotransferase 57 U/L (0-40); Albumin Level 3.8 g/dL (3.5-5.0); Alkaline Phosphatase 110 U/L (39-117); Aspartate Amino Transferase 33 U/L (5-37); Bilirubin Direct 0.2 mg/dL (0.0-0.5); Bilirubin Total 0.5 mg/dL (0.0-1.0); Cholesterol 165 mg/dL (<200); HDL Cholesterol 46 mg/dL (>40); LDL Cholesterol Calculated 102 mg/dL (<100); Total Protein 7.6 g/dL (6.5-8.0); Triglycerides 89 mg/dL (<150)
== END 2024-04-26 10:33 | disposition home or self-care (01) ==
LOC: HO.HHCL 10:32
PROVIDERS: Visit Provider Family Medicine
DX: E78.5 Hyperlipidemia, unspecified (principal); E11.65 Type 2 diabetes mellitus with hyperglycemia
CPT/HCPCS: 36415; 80061; 80076; 83036